=== PATIENT | female | born 1995 | race American Indian/Alaskan Native ===

== ENCOUNTER 2017-09-16 07:54 | Emergency (ER) | payer OTHER ==
[2017-09-16 08:15] VITALS: BP 146/91
[2017-09-16] MEDS ORDERED: MOTRIN PO ONE (09:19)
[2017-09-16] MEDS ORDERED: ORAPRED PO ONE (09:19)
[2017-09-16] MEDS ORDERED: LIDOCAINE VISCOUS 2% PO ONE (09:19)
--- NOTE | 2017-09-16 09:21 | Emergency Department Report ---
- General Chief Complaint: Upper Respiratory Infection Stated Complaint: STREP THROAT Time Seen by Provider: 09/16/17 09:20 Source: patient Mode of arrival: Ambulatory Limitations: No Limitations - History of Present Illness Initial Comments: Patient reports headache, stuffy nose and sore throat that started four days ago Complaint: sore throat, sinus pain Onset/Timin -: days(s) Severity: severe Severity scale (0 -10): 10 Quality: aching Consistency: constant Improves With: nothing Worsens With: other (swallowing) Context: other (none) Associated Symptoms: headache, nasal congestion, sore throat. denies: fever, chills, myalgias, diaphoresis, rhinorrhea, stiff neck, cough, chest pain, shortness of breath, abdominal pain, nausea, vomiting, diarrhea, dysuria, rash, confusion, right sweats, weight loss, epistaxis, hoarseness, ear pain Treatments Prior to Arrival: Ibuprofen - Related Data Previous Rx's Medication Instructions Recorded Last Taken Type Amoxicillin/Potassium Clav 1 each PO BID #20 tablet 09/16/17 Unknown Rx [Augmentin 875-125 Tablet] Fexofenadine HCl [Shari Allergy] 180 mg PO DAILY #15 tablet 09/16/17 Unknown Rx Fluticasone [Flonase] 1 spray NS QDAY #1 bottle 09/16/17 Unknown Rx Ibuprofen 600 mg PO TID PRN #25 tablet 09/16/17 Unknown Rx Allergies Allergy/AdvReac Type Severity Reaction Status Date / Time No Known Allergies Allergy Verified 09/16/17 08:15 ED Review of Systems ROS: Stated complaint: STREP THROAT Other details as noted in HPI Constitutional: denies: chills, diaphoresis, fever, malaise, weakness Eyes: denies: eye pain, eye discharge, vision change ENT: throat pain, congestion (nasal). denies: ear pain, dental pain, hearing loss, epistaxis Respiratory: denies: cough, orthopnea, shortness of breath, SOB with exertion, SOB at rest, stridor, wheezing Cardiovascular: denies: chest pain, palpitations, dyspnea on exertion, orthopnea , edema, syncope, paroxysmal nocturnal dyspnea Gastrointestinal: denies: abdominal pain, nausea, vomiting, diarrhea, constipation, hematemesis, melena, hematochezia Neurological: headache. denies: weakness, numbness, paresthesias, confusion, abnormal gait, vertigo ED Past Medical Hx - Past Medical History Previous Medical History?: No - Surgical History Past Surgical History?: No - Social History Smoking Status: Never Smoker Substance Use Type: None - Medications Home Medications: Home Medications Medication Instructions Recorded Confirmed Last Taken Type Amoxicillin/Potassium Clav 1 each PO BID #20 tablet 09/16/17 Unknown Rx [Augmentin 875-125 Tablet] Fexofenadine HCl [Shari Allergy] 180 mg PO DAILY #15 tablet 09/16/17 Unknown Rx Fluticasone [Flonase] 1 spray NS QDAY #1 bottle 09/16/17 Unknown Rx Ibuprofen 600 mg PO TID PRN #25 tablet 09/16/17 Unknown Rx ED Physical Exam - General Limitations: No Limitations General appearance: alert, in no apparent distress - Head Head exam: Present: atraumatic, normocephalic - Eye Eye exam: Present: normal appearance, PERRL, EOMI Pupils: Present: normal accommodation - ENT ENT exam: Present: mucous membranes moist, TM's normal bilaterally, normal external ear exam, other (TTP maxilliary sinuses with boggy and pale nasal turbinates) - Expanded ENT Exam Expanded Ear exam: Present: normal external inspection. Absent: auricular hematoma, auricular trauma Mouth exam: Present: normal external inspection, tongue normal. Absent: drooling, trismus, muffled voice, tongue elevation, laceration Teeth exam: Present: normal inspection. Absent: dental caries, fractured tooth #, dental tenderness #, gingival enlargement Throat exam: Positive: tonsillar erythema, tonsillar exudate. Negative: tonsillomegaly, R peritonsillar mass, L peritonsillar mass - Neck Neck exam: Present: full ROM, lymphadenopathy (soft cervical). Absent: tenderness, meningismus, thyromegaly - Respiratory Respiratory exam: Present: normal lung sounds bilaterally. Absent: respiratory distress, wheezes, rales, rhonchi, stridor, chest wall tenderness, accessory muscle use, decreased breath sounds, prolonged expiratory - Cardiovascular Cardiovascular Exam: Present: tachycardia, normal heart sounds. Absent: bradycardia, irregular rhythm, systolic murmur, diastolic murmur, rubs, gallop - GI/Abdominal GI/Abdominal exam: Present: soft, normal bowel sounds. Absent: distended, tenderness, guarding, rebound, rigid - Neurological Exam Neurological exam: Present: alert, oriented X3, CN II-XII intact, normal gait, reflexes normal. Absent: abnormal gait, motor sensory deficit - Skin Skin exam: Present: warm, dry, intact, normal color. Absent: rash ED Course Vital Signs 09/16/17 08:11 Temperature 99.6 F Pulse Rate 109 H Respiratory 18 Rate Blood Pressure 146/91 O2 Sat by Pulse 97 Oximetry - Reevaluation(s) Reevaluation #1: 09/16/17 09:25 Rapid Strep A test, analgesics, steroid and viscous lidocaine ordered ED Medical Decision Making - Lab Data Vital Signs 09/16/17 08:11 Temperature 99.6 F Pulse Rate 109 H Respiratory 18 Rate Blood Pressure 146/91 O2 Sat by Pulse 97 Oximetry Lab Results 09/16/17 Range/Units Unknown Group A Strep Rapid Negative (Negative) Vital Signs 09/16/17 08:11 Temperature 99.6 F Pulse Rate 109 H Respiratory 18 Rate Blood Pressure 146/91 O2 Sat by Pulse 97 Oximetry - Medical Decision Making During the course of ED, labs, analgesic, steroid and viscous lidocaine were ordered. The patient was sent home with prescriptions for Augmentin, Shari, Flonase and Ibuprofen based on physical examination, instructed to follow up with selected referral given at discharge. She verbalized understanding - Differential Diagnosis Pharygnitis, Sinusitis, Strep Throat Critical care attestation.: If time is entered above; I have spent that time in minutes in the direct care of this critically ill patient, excluding procedure time. ED Disposition Clinical Impression: Acute pharyngitis Sinusitis, acute Qualifiers: Sinusitis location: maxillary Recurrence: non-recurrent Qualified Code(s): J01.00 - Acute maxillary sinusitis, unspecified Disposition: DC-01 TO HOME OR SELFCARE Is pt being admited?: No Does the pt Need Aspirin: No Condition: Stable Instructions: Pharyngitis (ED), Sinusitis (ED) Additional Instructions: Take medication as directed. Gargle with warm salty water three times a day for the next two days. Follow up with the selective referral given at discharge. Return back to the ED for worsening symptoms or concerns Prescriptions: Amoxicillin/Potassium Clav [Augmentin 875-125 Tablet] 1 each PO BID #20 tablet Fexofenadine HCl [Shari Allergy] 180 mg PO DAILY #15 tablet Fluticasone [Flonase] 1 spray NS QDAY #1 bottle Ibuprofen 600 mg PO TID PRN #25 tablet PRN Reason: Pain Referrals: PRIMARY CARE,MD [Primary Care Provider] - 3-5 Days Forms: Work/School Release Form(ED) Time of Disposition: 09:35
== END 2017-09-16 10:12 | disposition home or self-care (01) ==
LOC: ED 07:54
DX: J02.9 Acute pharyngitis, unspecified (principal); J01.00 Acute maxillary sinusitis, unspecified
CPT/HCPCS: 87116; 87430; 99283; J7510

== ENCOUNTER 2018-08-29 08:57 | Emergency (ER) | payer OTHER ==
--- NOTE | 2018-08-29 10:11 | Emergency Department Report ---
Minor Respiratory - HPI Chief Complaint: Sore Throat Stated Complaint: SORE THROAT Pain Location: Throat Severity: moderate Minor Respiratory: Yes Sore Throat, Yes Able to Tolerate Fluids, No Rhinorrhea, No Ear Pain, No Cough, No Sick Contacts, No Hemoptysis, No Chest Pain, No Shortness of Breath, No Fever Other History: She comes to the ER today with reports of a sore throat and pus in the back of her throat. She is afebrile on exam. Past medical history none. Home medications none ED Review of Systems ROS: Stated complaint: SORE THROAT Other details as noted in HPI Comment: All other systems reviewed and negative Constitutional: denies: chills, fever Eyes: denies: eye pain ENT: throat pain. denies: ear pain Respiratory: denies: cough Cardiovascular: denies: palpitations Endocrine: denies: flushing Gastrointestinal: denies: nausea Genitourinary: denies: dysuria Musculoskeletal: denies: as per HPI Skin: denies: lesions Neurological: denies: headache Psychiatric: denies: anxiety ED Past Medical Hx - Past Medical History Previous Medical History?: No - Surgical History Past Surgical History?: No - Family History Family history: no significant - Social History Smoking Status: Current Every Day Smoker Substance Use Type: None - Medications Home Medications: Home Medications Medication Instructions Recorded Confirmed Last Taken Type Amoxicillin 500 mg PO BID #20 capsule 08/29/18 Unknown Rx Minor Respiratory Exam - Exam General: Vital signs noted. No distress. Alert and acting appropriately. HEENT: Yes Pharyngeal Erythema, Yes Pharyngeal Exudates, Yes Moist Mucous Membranes, No Rhinorrhea, No Conjuctival Injection, No Frontal Tenderness, No Maxillary Tenderness Ear: Neither TM Bulge, Neither TM Erythema, Neither EAC Pain, Neither EAC Discharge Neck: Yes Supple, No Adenopathy Lungs: Yes Good Air Exchange, No Wheezes, No Ronchi, No Stridor, No Cough, No Labored Respirations, No Retractions, No Use of Accessory Muscles, No Other Abnormal Lung Sounds Heart: Yes Regular, No Murmur Abdomen: Yes Normal Bowel Sounds, No Tenderness, No Peritoneal Signs Skin: No Rash, No Edema Neurologic: Alert and oriented, no deficits. Musculoskeletal: Unremarkable. ED Course Vital Signs 08/29/18 09:42 Temperature 97.7 F Pulse Rate 63 Respiratory 16 Rate Blood Pressure 130/93 O2 Sat by Pulse 99 Oximetry ED Medical Decision Making - Medical Decision Making ABC INTACT NO ABSCESS TAKING PO CONTROLLING SECRETIONS EXUDATIVE PHARYNGITIS DC HOME W DC POC Critical care attestation.: If time is entered above; I have spent that time in minutes in the direct care of this critically ill patient, excluding procedure time. ED Disposition Clinical Impression: Exudative pharyngitis Disposition: DC-01 TO HOME OR SELFCARE Is pt being admited?: No Does the pt Need Aspirin: No Condition: Stable Additional Instructions: MED ORDERED UNTIL GONE AMOX FREE AT [employer] HYDRATE WELL WITH WATER MOTRIN OR TYLENOL FOR PAIN OR FEVER GOOD HANDWASHING DIET TOLERATED ACTIVITY TOLERATED FOLLOW UP PCP THIS WEEK TO BE SURE IMPROVING Referrals: MARC FELTON MD [Primary Care Provider] - 3-5 Days Time of Disposition: 10:12
== END 2018-08-29 10:27 | disposition home or self-care (01) ==
LOC: ED 08:57
CPT/HCPCS: 99282

== ENCOUNTER 2019-03-14 10:07 | Emergency (ER) | payer SELFPAY ==
[2019-03-14 10:43] VITALS: BP 139/73
[2019-03-14] MEDS ORDERED: dexAMETHasone 20 MG/5 ML VIAL IM ONE (11:42)
[2019-03-14] MEDS ORDERED: PENICILLIN G BENZATHINE 1.2 MILLION UNIT/2 ML INJ IM ONE (11:42)
--- NOTE | 2019-03-14 12:07 | Emergency Department Report ---
ED General Adult HPI - General Chief complaint: Upper Respiratory Infection Stated complaint: COLD SX/BODY ACHE Time Seen by Provider: 03/14/19 11:29 Source: patient Mode of arrival: Ambulatory Limitations: No Limitations - History of Present Illness Initial comments: Patient is a 24-year-old female who is here secondary to some mild body aches mild cough but mainly a sore throat. Patient states earlier this month she had some white patches in her throat. Patient over the last 3 days states that the symptoms worsen and she now has fevers and chills. Patient has 8 out of 10 pain when swallowing. - Related Data Previous Rx's Medication Instructions Recorded Last Taken Type Amoxicillin 500 mg PO BID #20 capsule 08/29/18 Unknown Rx HYDROcodone/ACETAMINOPHEN 15 ml PO Q6H PRN #150 solution 03/14/19 Unknown Rx [Hydrocodon-Acetamin 7.5-325/15] predniSONE [Deltasone] 20 mg PO QDAY #5 tab 03/14/19 Unknown Rx Allergies Allergy/AdvReac Type Severity Reaction Status Date / Time No Known Allergies Allergy Verified 09/16/17 08:15 ED Review of Systems ROS: Stated complaint: COLD SX/BODY ACHE Other details as noted in HPI Comment: All other systems reviewed and negative ED Past Medical Hx - Past Medical History Previous Medical History?: No - Surgical History Past Surgical History?: No - Social History Smoking Status: Never Smoker Substance Use Type: None - Medications Home Medications: Home Medications Medication Instructions Recorded Confirmed Last Taken Type Amoxicillin 500 mg PO BID #20 capsule 08/29/18 Unknown Rx HYDROcodone/ACETAMINOPHEN 15 ml PO Q6H PRN #150 solution 03/14/19 Unknown Rx [Hydrocodon-Acetamin 7.5-325/15] predniSONE [Deltasone] 20 mg PO QDAY #5 tab 03/14/19 Unknown Rx ED Physical Exam - General Limitations: No Limitations General appearance: alert, in no apparent distress - Head Head exam: Present: atraumatic, normocephalic - Eye Eye exam: Present: normal appearance - ENT ENT exam: Present: mucous membranes moist - Expanded ENT Exam Expanded Throat exam: Positive: tonsillar erythema, tonsillomegaly, tonsillar exudate - Neck Neck exam: Present: normal inspection, lymphadenopathy - Respiratory Respiratory exam: Present: normal lung sounds bilaterally. Absent: respiratory distress, wheezes, rales, rhonchi - Cardiovascular Cardiovascular Exam: Present: regular rate, normal rhythm. Absent: systolic murmur, diastolic murmur, rubs, gallop - GI/Abdominal GI/Abdominal exam: Present: soft, normal bowel sounds - Extremities Exam Extremities exam: Present: normal inspection - Back Exam Back exam: Present: normal inspection - Neurological Exam Neurological exam: Present: alert, oriented X3 - Psychiatric Psychiatric exam: Present: normal affect, normal mood - Skin Skin exam: Present: warm, dry, intact, normal color. Absent: rash ED Course Vital Signs 03/14/19 10:42 Temperature 99.9 F H Pulse Rate 109 H Respiratory 16 Rate Blood Pressure 139/73 [Right] O2 Sat by Pulse 98 Oximetry ED Medical Decision Making - Medical Decision Making Recently [facility] criteria for empiric therapy with antibiotics. The patient likely a month ago started having a viral pharyngitis now be bacterial in nature. Patient will be given Bicillin and Decadron here in emergency department and medication for symptomatic relief at home and she'll be discharged. Critical care attestation.: If time is entered above; I have spent that time in minutes in the direct care of this critically ill patient, excluding procedure time. ED Disposition Clinical Impression: Pharyngitis Qualifiers: Pharyngitis/tonsillitis etiology: unspecified etiology Qualified Code(s): J02.9 - Acute pharyngitis, unspecified Disposition: - TO HOME OR SELFCARE Is pt being admited?: No Does the pt Need Aspirin: No Condition: Stable Instructions: Pharyngitis (ED) Referrals: PRIMARY CARE [Primary Care Provider] - 3-5 Days Time of Disposition: 12:06
== END 2019-03-14 12:13 | disposition home or self-care (01) ==
LOC: ED 10:07
DX: J02.9 Acute pharyngitis, unspecified (principal)
CPT/HCPCS: 96372; 99282; J0561; J1100

== ENCOUNTER 2019-03-31 08:34 | Emergency (ER) | payer SELFPAY ==
[2019-03-31 08:56] VITALS: BP 123/74
--- NOTE | 2019-03-31 09:39 | Emergency Department Report ---
Minor Respiratory - HPI Chief Complaint: Upper Respiratory Infection Stated Complaint: COLD SX Time Seen by Provider: 03/31/19 09:34 Duration: 3 Days Minor Respiratory: Yes Rhinorrhea, Yes Able to Tolerate Fluids, Yes Cough, Yes Fever, No Sore Throat, No Ear Pain, No Sick Contacts, No Hemoptysis, No Chest Pain, No Shortness of Breath Other History: 24-year-old -[place] female presents to the emergency room complaining of cough and nasal congestion for 3 days. Patient reports that she was seen here earlier this month and was placed on penicillin and given a antibiotic shot. Patient reports at that time she started to feel better but now she is having cough nasal congestion and postnasal drip. Patient denies any fever. ED Review of Systems ROS: Stated complaint: COLD SX Other details as noted in HPI Comment: All other systems reviewed and negative ENT: congestion Respiratory: cough ED Past Medical Hx - Past Medical History Previous Medical History?: No - Surgical History Past Surgical History?: No - Social History Smoking Status: Never Smoker Substance Use Type: None - Medications Home Medications: Home Medications Medication Instructions Recorded Confirmed Last Taken Type Amoxicillin 500 mg PO BID #20 capsule 08/29/18 Unknown Rx HYDROcodone/ACETAMINOPHEN 15 ml PO Q6H PRN #150 solution 03/14/19 Unknown Rx [Hydrocodon-Acetamin 7.5-325/15] predniSONE [Deltasone] 20 mg PO QDAY #5 tab 03/14/19 Unknown Rx Minor Respiratory Exam - Exam General: Vital signs noted. No distress. Alert and acting appropriately. HEENT: Yes Moist Mucous Membranes, Yes Rhinorrhea, No Pharyngeal Erythema, No Pharyngeal Exudates, No Conjuctival Injection, No Frontal Tenderness, No Maxillary Tenderness Ear: Neither TM Bulge, Neither TM Erythema, Neither EAC Pain, Neither EAC Discharge Neck: Yes Supple, No Adenopathy Lungs: Yes Good Air Exchange, No Wheezes, No Ronchi, No Stridor, No Cough, No Labored Respirations, No Retractions, No Use of Accessory Muscles, No Other Abnormal Lung Sounds Heart: Yes Regular, No Murmur Abdomen: Yes Normal Bowel Sounds, No Tenderness, No Peritoneal Signs Skin: No Rash, No Edema Neurologic: Alert and oriented, no deficits. Musculoskeletal: Unremarkable. ED Course Vital Signs 03/31/19 08:53 Temperature 98.1 F Pulse Rate 94 H Respiratory 16 Rate Blood Pressure 123/74 O2 Sat by Pulse 97 Oximetry ED Medical Decision Making - Medical Decision Making 24-year-old -[place] female presents to the emergency room complaining of cough and nasal congestion for 3 days. Patient reports that she was seen here earlier this month and was placed on penicillin and given a antibiotic shot. Patient reports at that time she started to feel better but now she is having cough nasal congestion and postnasal drip. Patient denies any fever. Recommended patient to try taking [id number] Zyrtec's D or Claritin-D. Critical care attestation.: If time is entered above; I have spent that time in minutes in the direct care of this critically ill patient, excluding procedure time. ED Disposition Clinical Impression: Allergic rhinitis Qualifiers: Allergic rhinitis trigger: unspecified Allergic rhinitis seasonality: seasonal Qualified Code(s): J30.2 - Other seasonal allergic rhinitis Disposition: DC- TO HOME OR SELFCARE Is pt being admited?: No Does the pt Need Aspirin: No Condition: Stable Instructions: Allergic Rhinitis (ED) Additional Instructions: Recommended to take [id number] Zyrtec-D or Claritin-D or Shari-D. Follow up with the ear nose and throat regards to enlarged tonsils. Tylenol and or ibuprofen as needed for pain. And also use [id number] Flonase nasal spray daily. Be aware that it takes approximately 2 weeks for medication to start been effective for the nasal spray. Referrals: CATHERINE RIVERA MD [Staff Physician] - 3-5 Days Forms: Work/School Release Form(ED)
== END 2019-03-31 09:45 | disposition home or self-care (01) ==
LOC: ED 08:34
DX: J30.2 Other seasonal allergic rhinitis (principal); Z79.899 Other long term (current) drug therapy
CPT/HCPCS: 99282

== ENCOUNTER 2020-07-14 07:25 | Emergency (ER) | payer SELFPAY ==
[2020-07-14 07:41] VITALS: BP 156/100
--- NOTE | 2020-07-14 09:08 | Emergency Department Report ---
- General Chief Complaint: Upper Respiratory Infection Stated Complaint: COUGH/HEADACHE,PAIN IN BACK Time Seen by Provider: 07/14/20 08:54 Source: patient Mode of arrival: Ambulatory Limitations: No Limitations - History of Present Illness Initial Comments: 25 yr old female presents to the ER today complaint of a 1 week history of frontal and occipital headache with associated productive cough with clear yellow sputum and a mild sore throat secondary to cough. She reports no chest pain, fever, chills, shortness of breath, vision changes, speech changes, focal weakness. She states that she has been taking Tylenol ibuprofen which does provide relief of her headache, but she states that the headache returns once the medication wears off. Patient also complains of lower back pain which started 3 days ago. She describes it as sharp and intermittent and worse when she bends/forward. She denies any injury or strenuous activity. She denies any radiation of the pain down into the legs or abdomen. She denies any UTI symptoms, abdominal pain or any abnormal vaginal symptoms. She reports no saddle anesthesia, lower extremity weakness. MD Complaint: cough, other (Headache, Low back pain) -: week(s) (1) - Related Data Previous Rx's Medication Instructions Recorded Last Taken Type Amoxicillin 500 mg PO BID #20 capsule 08/29/18 Unknown Rx HYDROcodone/ACETAMINOPHEN 15 ml PO Q6H PRN #150 solution 03/14/19 Unknown Rx [Hydrocodon-Acetamin 7.5-325/15] predniSONE [Deltasone] 20 mg PO QDAY #5 tab 03/14/19 Unknown Rx Amoxicillin/Potassium Clav 1 each PO BID #14 tablet 07/14/20 Unknown Rx [Augmentin 875-125 Tablet] Fexofenadine HCl [Shari Allergy] 60 mg PO BID #20 tablet 07/14/20 Unknown Rx Ibuprofen [Motrin] 800 mg PO Q8HR PRN #30 tablet 07/14/20 Unknown Rx Allergies Allergy/AdvReac Type Severity Reaction Status Date / Time tramadol Allergy Hives Verified 07/14/20 07:41 ED Review of Systems ROS: Stated complaint: COUGH/HEADACHE,PAIN IN BACK Other details as noted in HPI Comment: All other systems reviewed and negative Constitutional: denies: chills, fever ENT: denies: ear pain, throat pain, dental pain, congestion Respiratory: cough. denies: shortness of breath, SOB with exertion, SOB at rest, stridor, wheezing Cardiovascular: denies: chest pain Gastrointestinal: denies: abdominal pain, nausea, diarrhea Genitourinary: denies: urgency, dysuria, discharge Musculoskeletal: back pain Neurological: headache ED Past Medical Hx - Past Medical History Previous Medical History?: No - Surgical History Past Surgical History?: No - Social History Smoking Status: Never Smoker Substance Use Type: None - Medications Home Medications: Home Medications Medication Instructions Recorded Confirmed Last Taken Type Amoxicillin 500 mg PO BID #20 capsule 08/29/18 Unknown Rx HYDROcodone/ACETAMINOPHEN 15 ml PO Q6H PRN #150 solution 03/14/19 Unknown Rx [Hydrocodon-Acetamin 7.5-325/15] predniSONE [Deltasone] 20 mg PO QDAY #5 tab 03/14/19 Unknown Rx Amoxicillin/Potassium Clav 1 each PO BID #14 tablet 07/14/20 Unknown Rx [Augmentin 875-125 Tablet] Fexofenadine HCl [Shari Allergy] 60 mg PO BID #20 tablet 07/14/20 Unknown Rx Ibuprofen [Motrin] 800 mg PO Q8HR PRN #30 tablet 07/14/20 Unknown Rx ED Physical Exam - General Limitations: No Limitations General appearance: alert, in no apparent distress - Head Head exam: Present: atraumatic, normocephalic, normal inspection - Eye Eye exam: Present: normal appearance, PERRL, EOMI Pupils: Present: normal accommodation - ENT ENT exam: Present: normal exam, mucous membranes moist, other (Bilateral tonsils enlarged, small tonsilar stones vs exudates on left tonsils. No evidence of peritonsillar abscess. No drooling or trismus; mild frontal sinus and right maxillary sinus ttp) - Expanded ENT Exam Expanded Throat exam: Positive: tonsillar erythema, tonsillomegaly - Neck Neck exam: Present: normal inspection, full ROM - Respiratory Respiratory exam: Absent: normal lung sounds bilaterally - Cardiovascular Cardiovascular Exam: Present: regular rate, normal rhythm, normal heart sounds - GI/Abdominal GI/Abdominal exam: Present: soft. Absent: distended, tenderness - Back Exam Back exam: Present: normal inspection, full ROM, tenderness (Soft tissue/paraspinal muscle ttp lower lumbar area; Mild bilateral CVA ttp), paraspinal tenderness - Neurological Exam Neurological exam: Present: alert, oriented X3, CN II-XII intact - Psychiatric Psychiatric exam: Present: normal affect, normal mood - Skin Skin exam: Present: intact ED Course Vital Signs 07/14/20 07:39 Temperature 98.7 F Pulse Rate 96 H Respiratory 18 Rate Blood Pressure 156/100 [Right] O2 Sat by Pulse 98 Oximetry ED Medical Decision Making - Radiology Data Radiology results: report reviewed - Medical Decision Making CXR negative for anything acute. Pt is well appearing, no toxic and not in any acute distress. She is not in any respiratory distress or pain distress. She is neurologically intact with normal gait. Her BP is elevated, but remaining vs stable. She denies hx of HTN. Recommend monitoring her BP at home. There is no indication for w/u at this time. Discussed suspected dx and tx plan with patient. Patient expressed understanding of instructions and agree with plan. Patient was stable at time of discharge. Critical care attestation.: If time is entered above; I have spent that time in minutes in the direct care of this critically ill patient, excluding procedure time. ED Disposition Clinical Impression: Sinusitis, Low back pain Disposition: DC- TO HOME OR SELFCARE Is pt being admited?: No Does the pt Need Aspirin: No Condition: Stable Instructions: Acute Back Pain, Adult, Sinusitis, Adult, [id number] Additional Instructions: Take the medications as prescribed. Follow up with PCP for continued monitoring of your blood pressure. return to ED if symptoms worsens. Prescriptions: Fexofenadine HCl [Shari Allergy] 60 mg PO BID #20 tablet Amoxicillin/Potassium Clav [Augmentin 875-125 Tablet] 1 each PO BID #14 tablet Ibuprofen [Motrin] 800 mg PO Q8HR PRN #30 tablet PRN Reason: Pain , Severe (7-10) Referrals: CAILTYN THOMAS MD [Staff Physician] - 3-5 Days Forms: Work/School Release Form(ED) Time of Disposition: 11:47
[2020-07-14 09:49] LABS: Bilirubin,Urine NEG (Negative); Blood,Urine NEG (Negative); Color,Urine Yellow (Yellow); Mucus,Urine FEW /HPF; Protein,Urine <15 mg/dL mg/dL (Negative); Urobilinogen,Urine < 2.0 mg/dL (<2.0)
[2020-07-14 10:14] LABS: HCG Qualitative,Urine Negative (Negative)
--- NOTE | 2020-07-14 11:04 | XRay Report ---
CHEST 2 VIEWS INDICATION / CLINICAL INFORMATION: cough. COMPARISON: None available. FINDINGS: SUPPORT DEVICES: None. HEART / MEDIASTINUM: No significant abnormality. LUNGS / PLEURA: No significant pulmonary or pleural abnormality. No pneumothorax. ADDITIONAL FINDINGS: No significant additional findings. IMPRESSION: 1. No focal consolidation. Signer Name: Jaciel Torres MD Signed: 07/14/2020 11:00 AM Workstation Name: [id number]
== END 2020-07-14 12:42 | disposition home or self-care (01) ==
LOC: ED 07:25
DX: M54.5 Low back pain (principal); J32.9 Chronic sinusitis, unspecified; Z79.899 Other long term (current) drug therapy; Z88.8 Allergy status to other drugs, medicaments and biological substances
CPT/HCPCS: 71046; 81001; 81025

== ENCOUNTER 2021-06-18 12:32 | Emergency (ER) | payer SELFPAY ==
--- NOTE | 2021-06-18 13:34 | Emergency Department Report ---
- General Chief Complaint: Upper Respiratory Infection Stated Complaint: JOSE SUN'S Time Seen by Provider: 06/18/21 13:25 Source: patient, family Mode of arrival: Ambulatory Limitations: No Limitations - History of Present Illness Initial Comments: Patient is a 26-year-old female presents emergency room complaints of being Covid 19 positive. She reports that she was tested 2 days ago. She states that she went to get tested as she traveled to [place] and just returned on June 13 2021. She states that today she began having chills, headache, generalized body aches, cough, sore throat. She reports that she felt warm but did not take her temperature. She denies any vomiting, diarrhea, shortness of breath, chest pain. No past medical history. Allergy to tramadol. Last menstrual cycle 05/29/2021. - Related Data Previous Rx's Medication Instructions Recorded Last Taken Type Amoxicillin 500 mg PO BID #20 capsule 08/29/18 Unknown Rx HYDROcodone/ACETAMINOPHEN 15 ml PO Q6H PRN #150 solution 03/14/19 Unknown Rx [Hydrocodon-Acetamin 7.5-325/15] predniSONE [Deltasone] 20 mg PO QDAY #5 tab 03/14/19 Unknown Rx Amoxicillin/Potassium Clav 1 each PO BID #14 tablet 07/14/20 Unknown Rx [Augmentin 875-125 Tablet] Fexofenadine HCl [Shari Allergy] 60 mg PO BID #20 tablet 07/14/20 Unknown Rx Ibuprofen [Motrin] 800 mg PO Q8HR PRN #30 tablet 07/14/20 Unknown Rx Acetaminophen [Tylenol] 650 mg PO Q8HR PRN #20 cap 06/18/21 Unknown Rx Benzonatate [Tessalon Perles] 100 mg PO Q8HR PRN #12 cap 06/18/21 Unknown Rx guaiFENesin ER [Mucinex ER] 600 mg PO Q12H #14 tab 06/18/21 Unknown Rx Allergies Allergy/AdvReac Type Severity Reaction Status Date / Time tramadol Allergy Hives Verified 06/18/21 12:33 ED Review of Systems ROS: Stated complaint: JOSE SUN'S Other details as noted in HPI Comment: All other systems reviewed and negative ED Past Medical Hx - Past Medical History Previous Medical History?: No - Surgical History Past Surgical History?: No - Social History Smoking Status: Never Smoker Substance Use Type: None - Medications Home Medications: Home Medications Medication Instructions Recorded Confirmed Last Taken Type Amoxicillin 500 mg PO BID #20 capsule 08/29/18 Unknown Rx HYDROcodone/ACETAMINOPHEN 15 ml PO Q6H PRN #150 solution 03/14/19 Unknown Rx [Hydrocodon-Acetamin 7.5-325/15] predniSONE [Deltasone] 20 mg PO QDAY #5 tab 03/14/19 Unknown Rx Amoxicillin/Potassium Clav 1 each PO BID #14 tablet 07/14/20 Unknown Rx [Augmentin 875-125 Tablet] Fexofenadine HCl [Shari Allergy] 60 mg PO BID #20 tablet 07/14/20 Unknown Rx Ibuprofen [Motrin] 800 mg PO Q8HR PRN #30 tablet 07/14/20 Unknown Rx Acetaminophen [Tylenol] 650 mg PO Q8HR PRN #20 cap 06/18/21 Unknown Rx Benzonatate [Tessalon Perles] 100 mg PO Q8HR PRN #12 cap 06/18/21 Unknown Rx guaiFENesin ER [Mucinex ER] 600 mg PO Q12H #14 tab 06/18/21 Unknown Rx ED Physical Exam - General Limitations: No Limitations General appearance: alert, in no apparent distress - Head Head exam: Present: atraumatic, normocephalic - Eye Eye exam: Present: normal appearance - ENT ENT exam: Present: mucous membranes moist - Respiratory Respiratory exam: Present: normal lung sounds bilaterally. Absent: respiratory distress, wheezes, rales, rhonchi, stridor, chest wall tenderness, accessory muscle use, decreased breath sounds, prolonged expiratory - Cardiovascular Cardiovascular Exam: Present: regular rate, normal rhythm, normal heart sounds. Absent: systolic murmur, diastolic murmur, rubs, gallop - Neurological Exam Neurological exam: Present: alert, oriented X3 - Psychiatric Psychiatric exam: Present: normal affect, normal mood - Skin Skin exam: Present: warm, dry, intact ED Course Vital Signs 06/18/21 06/18/21 12:37 14:19 Temperature 98.9 F Pulse Rate 81 77 Respiratory 18 14 Rate Blood Pressure 129/80 Blood Pressure 134/97 [Right] O2 Sat by Pulse 99 99 Oximetry ED Medical Decision Making - Medical Decision Making Patient is a 26-year-old female presents emergency room complaints of being Covid 19 positive. She reports that she was tested 2 days ago. She states that she went to get tested as she traveled to [place] and just returned on June 13 2021. She states that today she began having chills, headache, generalized body aches, cough, sore throat. She reports that she felt warm but did not take her temperature. She denies any vomiting, diarrhea, shortness of breath, chest pain. No past medical history. Allergy to tramadol. Last menstrual cycle 05/29/2021. Vitals are normal. Breath sounds are clear bilaterally, no wheezing, no rales, no rhonchi. Patient has no hypoxia, no fever, no tachycardia. Symptoms and examination appear consistent with mild COVID-19 at this time. She is very well-appearing and having no increased work of breathing. Discussed supportive care and symptomatic treatment with patient and the importance of oral hydration. Advised patient Please take medication as prescribed. Increase your fluid intake. Follow-up with your primary care doctor for reexamination. Return to emergency room for any new or worsening symptoms. Please self quarantine for 5 days and then do 5 days of strict mask wearing according to the CDC guidelines. Critical care attestation.: If time is entered above; I have spent that time in minutes in the direct care of this critically ill patient, excluding procedure time. ED Disposition Clinical Impression: COVID-19 Disposition: 01 HOME / SELF CARE / HOMELESS Is pt being admited?: No Does the pt Need Aspirin: No Condition: Stable Instructions: COVID-19, COVID-19: How to Protect Yourself and Others - CDC Additional Instructions: Please take medication as prescribed. Increase your fluid intake. Follow-up with your primary care doctor for reexamination. Return to emergency room for any new or worsening symptoms. Please self quarantine for 5 days and then do 5 days of strict mask wearing according to the CDC guidelines. Prescriptions: guaiFENesin ER [Mucinex ER] 600 mg PO Q12H #14 tab Benzonatate [Tessalon Perles] 100 mg PO Q8HR PRN #12 cap PRN Reason: cough Acetaminophen [Tylenol] 650 mg PO Q8HR PRN #20 cap PRN Reason: headache/fever Referrals: CAITLYN THOMAS MD [Staff Physician] - 3-5 Days [facility] [Provider Group] - 3-5 Days Forms: Work/School Release Form(ED) Time of Disposition: 13:32 Print Language: GAMBIAN
[2021-06-18 14:20] VITALS: BP 134/97
== END 2021-06-18 14:19 | disposition home or self-care (01) ==
LOC: ED 12:32
DX: U07.1 COVID-19 (principal); Z91.09 Other allergy status, other than to drugs and biological substances; Z79.899 Other long term (current) drug therapy
CPT/HCPCS: 99282